=== PATIENT | male | born 1990 | race Caucasian/White ===

== ENCOUNTER 2020-12-27 14:25 | Emergency (ER) | payer MEDICAID ==
--- NOTE | 2020-12-27 14:53 | ERPHSYRPT ---
- History of Present Illness Historian: patient Patient Subjective Stated Complaint: Chest pain Triage Nursing Assessment: Patient ambulated back to ED and transferred self to bed. Patient A+O X3. Patient's skin pink, warm and dry. Patient complains of left sided chest/rib pain for one week. Patient states one week ago he was wrestling with someone when he started having pain. Patient complains of intermittent sharp pain 6/10 when moving. Physician History: 30 yo wm w L lateral chest pain x 1wk. Pt states injured wrestling while drinking. Pain worse w movement. He denies N/V/diaphoresis/dyspnea/fever/cough. Pt denies h/o HTN/DM/hyperlipidemia but does smoke 1-2 ppd and has a h/o meth use in the past. Pain is moderate and sharp. Timing/Duration: other (1wk) Activities at Onset: other (Possibly wrestling) Quality: sharpness Location: other (L lateral thorax) Severity of Pain-Max: moderate Severity of Pain-Current: moderate Modifying Factors: Improves With: movement Associated Symptoms: No nausea, No vomiting, No palpitations, No heartburn, No abdominal pain, No shortness of breath, No cough, No hurts to breathe, No diaphoresis, No chills, No fever, No fatigue, No weakness, No swelling/lump in chest, No syncope, No rash, No headache, No dizziness, No edema, No back pain Prior Chest Pain/Cardiac Workup: no prior chest pain Nitro Today/Relief: no nitro taken today Aspirin Treatment Today: no aspirin today Allergies/Adverse Reactions: No Known Drug Allergies Allergy (Unverified 12/27/20 14:30) Home Medications: No Reportable Medications [No Reported Medications] 12/27/20 [History] Hx Influenza Vaccination/Date Given: Yes Hx Pneumococcal Vaccination/Date Given: No Immunizations Up to Date: Yes Travel Risk - International Travel Have you traveled outside of the country in past 3 weeks: No - Coronavirus Screening Are you exhibiting any of the following symptoms?: No Close contact with a COVID-19 positive Pt in past 14-21 Days: No - Vaccine Status Have you recieved a Covid-19 vaccination: No - Review of Systems Constitutional: No Symptoms Eyes: No Symptoms Ears, Nose, & Throat: No Symptoms Respiratory: No Symptoms Cardiac: No Symptoms, Chest Pain Abdominal/Gastrointestinal: No Symptoms Genitourinary Symptoms: No Symptoms Musculoskeletal: No Symptoms Skin: No Symptoms Neurological: No Symptoms Psychological: No Symptoms Endocrine: No Symptoms Hematologic/Lymphatic: No Symptoms Immunological/Allergic: No Symptoms - Past Medical History Pertinent Past Medical History: No Neurological History: No Pertinent History ENT History: No Pertinent History Cardiac History: No Pertinent History Respiratory History: No Pertinent History Endocrine Medical History: No Pertinent History Musculoskeletal History: No Pertinent History GI Medical History: No Pertinent History History: No Pertinent History Psycho-Social History: No Pertinent History Male Reproductive Disorders: No Pertinent History - Past Surgical History Past Surgical History: No Neuro Surgical History: No Pertinent History Cardiac: No Pertinent History Respiratory: No Pertinent History Gastrointestinal: No Pertinent History Genitourinary: No Pertinent History Musculoskeletal: No Pertinent History Male Surgical History: No Pertinent History - Social History Smoking Status: Current every day smoker How long have you smoked: years Exposure to second hand smoke: Yes Drug Use: marijuana Patient Lives Alone: No Significant Family History: no pertinent family hx - Nursing Vital Signs Nursing Vital Signs: Initial Vital Signs Temperature 98.0 F 12/27/20 14:30 Pulse Rate 71 12/27/20 14:30 Respiratory Rate 18 12/27/20 14:30 Blood Pressure 136/83 12/27/20 14:30 O2 Sat by Pulse Oximetry 98 12/27/20 14:30 Pain Scale Pain Intensity 6 - Physical Exam General Appearance: no apparent distress Eye Exam: PERRL/EOMI, eyes nml inspection Ears, Nose, Throat Exam: normal ENT inspection, TMs normal, pharynx normal, moist mucous membranes Neck Exam: normal inspection, non-tender, supple, full range of motion, No meningismus, No mass, No Brudzinski, No Kernig's, No carotid bruit Respiratory Exam: normal breath sounds, chest tenderness (Mild L lateral), lungs clear, airway intact, No respiratory distress Cardiovascular Exam: regular rate/rhythm, normal heart sounds, normal peripheral pulses, No murmur Gastrointestinal/Abdomen Exam: soft, normal bowel sounds, No tenderness, No distention Back Exam: normal inspection, normal range of motion, No CVA tenderness Extremity Exam: normal inspection, normal range of motion Neurologic Exam: alert, oriented x 3, cooperative, apparel fashion designer II-XII nml as tested, normal mood/affect, sensation nml Skin Exam: normal color, warm, dry Lymphatic Exam: No adenopathy SpO2 Interpretation: normal SpO2: 98 O2 Delivery: Room Air - Course Nursing assessment & vital signs reviewed: Yes EKG Interpreted by Me: RATE (NSR/R81/RBBB/LVH/Normal Qt-QTc) - Radiology Exams Ribs X-ray Interpretation: Discussed w/ radiologist (L ribs neg per Rad) Ordered Tests: Active Orders 24 hr Category Date Time Status EKG-ER Only STAT Care 12/27/20 14:46 Completed RIBS UNILATERAL Stat Exams 12/27/20 15:02 Completed TROPONIN Q3H Lab 12/27/20 15:00 Completed TROPONIN Q3H Lab 12/27/20 18:00 Ordered TROPONIN Q3H Lab 12/27/20 21:00 Ordered Lab/Rad Data: Laboratory Results 12/27/20 Range/Units 15:00 Troponin I < 0.012 (0.000-0.034) ng/mL - Progress Progress Note: 12/27/20 15:43 Pt refuses pain meds Counseled pt/family regarding: lab results, diagnosis, need for follow-up, rad results - Departure Departure Disposition: Home Clinical Impression: Chest wall injury Condition: Stable Critical Care Time: No Referrals: DOCTOR,NO FAMILY [Primary Care Provider] - Instructions: Costochondritis (DC) Additional Instructions: Motrin/Tylenol for pain Follow up with your family MD Return to ER for increasing pain or shortness of breath
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
[2020-12-27 15:49] VITALS: BP 112/72; PULSE 48
[2020-12-27 16:35] VITALS: O2SAT 98
== END 2020-12-27 15:54 | disposition home or self-care (01) ==
LOC: ED 14:25
DX: S29.9XXA Unspecified injury of thorax, initial encounter (principal); R07.9 Chest pain, unspecified; X50.0XXA Overexertion from strenuous movement or load, initial encounter; X50.9XXA Other and unspecified overexertion or strenuous movements or postures, initial encounter; Y93.72 Activity, wrestling; Y92.89 Other specified places as the place of occurrence of the external cause
CPT/HCPCS: 36000; 36415; 71100; 84484; 93005; 99284

== ENCOUNTER 2021-03-15 12:12 | Emergency (ER) | payer SELFPAY ==
--- NOTE | 2021-03-15 12:40 | ERPHSYRPT ---
- History of Present Illness Time Seen by Provider: 03/15/21 12:29 Source: patient Exam Limitations: no limitations Patient Subjective Stated Complaint: PT states "I have had cough for the past 4 days. I am from [place] and I am not used to all this humidity.:" Triage Nursing Assessment: Pt presented alert and oriented X 3, skin pwd Pt ambulates with an upright steady gait, able to speak in clear full sentenecs pt in no apparent respiratory distress. Physician History: 30 years old presented in the ER with chief complaint of wet to dry cough some congestion for the last 4 days with progressive worsening. Denies any difficulty breathing. Subjective feeling of fever and chills. Timing/Duration: day(s) (4), intermittent, gradual onset, worse Cough Quality/Degree: moderate, dry cough, productive cough Possible Cause: illness exposure Modifying Factors: Worsens With: coughing Associated Symptoms: cough, nasal congestion, nasal drainage, sore throat, wheezing, No fever, No chills, No chest pain/soreness, No shortness of breath Allergies/Adverse Reactions: No Known Drug Allergies Allergy (Verified 03/15/21 12:25) Hx Tetanus, Diphtheria Vaccination/Date Given: Yes Hx Influenza Vaccination/Date Given: No Hx Pneumococcal Vaccination/Date Given: No Immunizations Up to Date: Yes Travel Risk - International Travel Have you traveled outside of the country in past 3 weeks: No - Coronavirus Screening Are you exhibiting any of the following symptoms?: No Close contact with a COVID-19 positive Pt in past 14-21 Days: No - Vaccine Status Have you recieved a Covid-19 vaccination: No - Review of Systems Constitutional: No Symptoms Eyes: No Symptoms Ears, Nose, & Throat: Nose Congestion, Nose Discharge, Sinus Drainage Respiratory: Cough, Wheezing Cardiac: No Symptoms Abdominal/Gastrointestinal: No Symptoms Genitourinary Symptoms: No Symptoms Musculoskeletal: No Symptoms Skin: No Symptoms Neurological: No Symptoms Psychological: No Symptoms Endocrine: No Symptoms - Past Medical History Pertinent Past Medical History: No Neurological History: No Pertinent History ENT History: No Pertinent History Cardiac History: No Pertinent History Respiratory History: No Pertinent History Endocrine Medical History: No Pertinent History Musculoskeletal History: No Pertinent History GI Medical History: No Pertinent History History: No Pertinent History Psycho-Social History: No Pertinent History Male Reproductive Disorders: No Pertinent History - Past Surgical History Past Surgical History: No Neuro Surgical History: No Pertinent History Cardiac: No Pertinent History Respiratory: No Pertinent History Gastrointestinal: No Pertinent History Genitourinary: No Pertinent History Musculoskeletal: No Pertinent History Male Surgical History: No Pertinent History - Social History Smoking Status: Current every day smoker How long have you smoked: years Exposure to second hand smoke: Yes Drug Use: methamphetamines Patient Lives Alone: Yes Significant Family History: no pertinent family hx - Nursing Vital Signs Nursing Vital Signs: Initial Vital Signs Temperature 98.1 F 03/15/21 12:20 Pulse Rate 62 03/15/21 12:20 Respiratory Rate 22 03/15/21 12:20 Blood Pressure 131/73 03/15/21 12:20 O2 Sat by Pulse Oximetry 100 03/15/21 12:20 Pain Scale Pain Intensity 0 - Physical Exam General Appearance: no apparent distress, alert Eye Exam: PERRL/EOMI, eyes nml inspection Ears, Nose, Throat Exam: TMs normal, pharyngeal erythema Neck Exam: normal inspection, supple, full range of motion Respiratory Exam: airway intact, wheezing, No respiratory distress, No accessory muscle use Cardiovascular Exam: regular rate/rhythm, normal heart sounds Back Exam: normal inspection, normal range of motion Extremity Exam: normal inspection, normal range of motion Neurologic Exam: alert, oriented x 3, cooperative Skin Exam: normal color SpO2 Interpretation: normal SpO2: 100 O2 Delivery: Room Air - Progress Progress: unchanged Air Movement: good Progress Note: 03/15/21 12:37 viral uri with cough Supportive care recommended. Outpatient follow-up. Blood Culture(s) Obtained: No Antibiotics given: No Counseled pt/family regarding: diagnosis, need for follow-up, smoking cessation - Departure Departure Disposition: Home Clinical Impression: Viral URI with cough Condition: Stable Critical Care Time: No Referrals: DOCTOR,NO FAMILY [Primary Care Provider] - MARTHA MUHAMMAD MD [ACTIVE STAFF] - Follow Up with PCP/3 days Instructions: Cough, Adult (DC) Additional Instructions: follow up with PCP for re evaluation in 2-3 days if has no improvement. return to ER for worsening cough or if develop shortness of breath/fever /chest pain etc Prescriptions: Fexofenadine/Pseudoephedrine [Aimee-D 12 Hour Tablet] 1 each PO BID #14 tablet Prednisone 20 mg [Deltasone 20 mg] 60 mg PO DAILY 5 Days #15 tablet Albuterol 8 gm Mdi Hfa [Ventolin Hfa MDI] 8 gm IH Q4H #1 gm
[2021-03-15 12:44] VITALS: BP 128/60; PULSE 60
[2021-03-15 21:48] VITALS: O2SAT 100
== END 2021-03-15 12:59 | disposition home or self-care (01) ==
LOC: ED 12:12
DX: J06.9 Acute upper respiratory infection, unspecified (principal); R05 Cough
CPT/HCPCS: 99283

== ENCOUNTER 2021-12-12 16:26 | Emergency (ER) | payer MEDICAID ==
[2021-12-12] MEDS ORDERED: CLEOCIN 150 MG CAPSULE PO ONE (16:53)
[2021-12-12] MEDS ORDERED: PERCOCET TABLET 5/325MG PO ONE (16:53)
[2021-12-12] MEDS ORDERED: PERCOCET TABLET 5/325MG ONE (17:03)
[2021-12-12] MEDS ORDERED: CLEOCIN 150 MG CAPSULE ONE (17:04)
--- NOTE | 2021-12-12 17:04 | ERPHSYRPT ---
- History of Present Illness Time Seen by Provider: 12/12/21 16:34 Source: patient Exam Limitations: no limitations Patient Subjective Stated Complaint: pt co swelling to right, states he did to yard work yesterday, doesn not feel like amything in eye Triage Nursing Assessment: pt alert, walked in, resp easy, face jack in place, has swelling around eye , co some blurred vison and tearing Physician History: 31-year-old male with history of psoriasis presented in the ER with chief complaint of right medial eyebrow area swelling and pain since yesterday. Patient report he always have a scab on a lesion in this area and day before yesterday it came off while taking a shower and noticed increased swelling and redness with moderate intensity sharp pain. No difficulty movements of eyeball. No swelling of the upper lid. No fever or chills reported. Timing/Duration: yesterday, gradual onset, worse Location: right eye Severity: moderate Apparent Injury: no Associated Symptoms: pain Allergies/Adverse Reactions: No Known Drug Allergies Allergy (Verified 12/12/21 16:35) Hx Tetanus, Diphtheria Vaccination/Date Given: No Hx Influenza Vaccination/Date Given: No Hx Pneumococcal Vaccination/Date Given: No Travel Risk - International Travel Have you traveled outside of the country in past 3 weeks: No - Coronavirus Screening Are you exhibiting any of the following symptoms?: No Close contact with a COVID-19 positive Pt in past 14-21 Days: No - Vaccine Status Have you recieved a Covid-19 vaccination: No - Review of Systems Constitutional: No Symptoms Eyes: Eye Pain, No Eye Redness Ears, Nose, & Throat: No Symptoms Respiratory: No Symptoms Cardiac: No Symptoms Skin: Skin Lesions Neurological: No Symptoms Endocrine: No Symptoms Hematologic/Lymphatic: No Symptoms - Past Medical History Pertinent Past Medical History: No Neurological History: No Pertinent History ENT History: No Pertinent History Cardiac History: No Pertinent History Respiratory History: No Pertinent History Endocrine Medical History: No Pertinent History Musculoskeletal History: No Pertinent History GI Medical History: No Pertinent History History: No Pertinent History Psycho-Social History: No Pertinent History Male Reproductive Disorders: No Pertinent History - Past Surgical History Past Surgical History: No Neuro Surgical History: No Pertinent History Cardiac: No Pertinent History Respiratory: No Pertinent History Gastrointestinal: No Pertinent History Genitourinary: No Pertinent History Musculoskeletal: No Pertinent History Male Surgical History: No Pertinent History - Social History Smoking Status: Current every day smoker How long have you smoked: years Exposure to second hand smoke: Yes Drug Use: marijuana, methamphetamines Patient Lives Alone: Yes Significant Family History: no pertinent family hx - Nursing Vital Signs Nursing Vital Signs: Initial Vital Signs Temperature 97 F 12/12/21 16:31 Pulse Rate 67 12/12/21 16:31 Respiratory Rate 18 12/12/21 16:31 Blood Pressure 112/66 12/12/21 16:31 O2 Sat by Pulse Oximetry 100 12/12/21 16:31 Pain Scale Pain Intensity 10 - Physical Exam General Appearance: no apparent distress Vision Acuity Degree Evaluation Phase: Uncorrected Vision Acuity Right Eye: 20/30 Vision Acuity Left Eye: 20/30 Eye Exam: right eye: other (0.5 x 0.5 cm area in the medial end of eyebrow with swelling redness, warm, tender to touch. Questionable fluctuation. No upper lip swelling. No lower lid swelling. No redness of eyeball. Intact range of motion.), bilateral eye: normal inspection, PERRL, EOMI Ears, Nose, Throat Exam: normal ENT inspection, pharynx normal, moist mucous membranes Neck Exam: normal inspection, non-tender, supple, full range of motion Respiratory Exam: normal breath sounds, lungs clear Cardiovascular Exam: regular rate/rhythm, normal heart sounds Neurologic: alert, oriented x 3, cooperative, talking books library clerk II-XII nml as tested, normal mood/affect Skin Exam: normal color SpO2 Interpretation: normal SpO2: 100 O2 Delivery: Room Air Ordered Tests: Medication Summary Discontinued Medications Generic Name Dose Route Start Last Admin Trade Name Mika PRN Reason Stop Dose Admin Clindamycin HCl 300 mg 12/12/21 16:53 12/12/21 17:06 Clindamycin Hcl 150 Mg Capsule PO 12/12/21 16:54 300 mg STAT ONE Administration Clindamycin HCl Confirm 12/12/21 17:04 Clindamycin Hcl 150 Mg Capsule Administered 12/12/21 17:05 Dose 300 mg .ROUTE .STK-MED ONE Oxycodone/Acetaminophen 1 tab 12/12/21 16:53 12/12/21 17:05 Oxycodone Hcl/Apap 5 Mg/325 Mg Tablet PO 12/12/21 16:54 Not Given STAT ONE Oxycodone/Acetaminophen Confirm 12/12/21 17:03 Oxycodone Hcl/Apap 5 Mg/325 Mg Tablet Administered 12/12/21 17:04 Dose 1 tab .ROUTE .STK-MED ONE - Progress Progress: unchanged Progress Note: 12/12/21 17:05 Is given Percocet for symptomatic relief which she refused. I have tried to do needle aspiration but negative for any pus. Started on antibiotics. We will treat him like periorbital cellulitis with clindamycin. Outpatient follow-up recommended. Up-to-date with tetanus. Counseled pt/family regarding: diagnosis, need for follow-up - Departure Departure Disposition: Home Clinical Impression: Periorbital cellulitis of right eye Condition: Stable Critical Care Time: No Referrals: DOCTOR,NO FAMILY [Primary Care Provider] - Follow up/PCP as directed ABRAHAN BAILEY DO [ACTIVE STAFF] - Follow up/PCP as directed (1-2 days for reevaluation) Instructions: Orbital Cellulitis (DC) Additional Instructions: Take Tylenol/ibuprofen as needed. Continue with your antibiotics. Follow-up with primary care for reevaluation. Turn to ER for any worsening of swel ling/pain, difficulty movements of eyeball, difficulty moving upper lid, fever chills, discharge etc.. Prescriptions: Ibuprofen 600 mg PO Q6HPRN PRN 10 Days #20 tablet PRN Reason: Pain clindamycin HCL [Clindamycin HCl] 300 mg PO QID 7 Days #28 cap
[2021-12-12 17:23] VITALS: BP 104/65; PULSE 74
[2021-12-12 22:19] VITALS: O2SAT 100
== END 2021-12-12 17:27 | disposition home or self-care (01) ==
LOC: ED 16:26
DX: L03.213 Periorbital cellulitis (principal); R51.9 Headache, unspecified; Z72.0 Tobacco use
CPT/HCPCS: 99283; A9270-GY

== ENCOUNTER 2022-06-23 15:54 | Emergency (ER) | payer MEDICAID, OTHER ==
[2022-06-23 16:22] VITALS: BP 123/79; PULSE 69; O2SAT 100
[2022-06-23] MEDS ORDERED: XYLOCAINE 1% HCL 20 ML MDV ONE (16:32)
[2022-06-23] MEDS ORDERED: BACIGUENT PACKET ONE (16:32)
--- NOTE | 2022-06-23 16:32 | ERPHSYRPT ---
- History of Present Illness Source: patient Exam Limitations: no limitations Patient Subjective Stated Complaint: C/O skin irritation and pain to right side of face for 3 days Triage Nursing Assessment: Patient ambulated back to ED without difficulties. No SOB. He is alert and oriented. Patient with a red, warm, swollen protrusion to right upper cheek area on face. The area has 3 small, pinpoint pustules noted within it. Swelling extends around the protrusion with swelling noted under right eye. Right eye swelling with some bruising/purple discoloration. Physician History: Large pustule R zygoma area x 4 days. pain is mild, and fever is denied. He denies trauma/DELACRUZ/N/V. He has a h/o similar pustule in the past. Timing/Duration: other (4 days) Quality: painful Severity: mild Location: face Possible Causes: no cause identified Associated Symptoms: denies symptoms Allergies/Adverse Reactions: No Known Drug Allergies Allergy (Verified 06/23/22 16:11) Hx Tetanus, Diphtheria Vaccination/Date Given: Yes Hx Influenza Vaccination/Date Given: No Hx Pneumococcal Vaccination/Date Given: No Immunizations Up to Date: Yes Travel Risk - International Travel Have you traveled outside of the country in past 3 weeks: No - Coronavirus Screening Close contact with a COVID-19 positive Pt in past 14-21 Days: No - Vaccine Status Have you recieved a Covid-19 vaccination: No - Review of Systems Constitutional: No Symptoms Eyes: No Symptoms Ears, Nose, & Throat: No Symptoms Respiratory: No Symptoms Cardiac: No Symptoms Abdominal/Gastrointestinal: No Symptoms Genitourinary Symptoms: No Symptoms Musculoskeletal: No Symptoms Neurological: No Symptoms Psychological: No Symptoms Endocrine: No Symptoms Hematologic/Lymphatic: No Symptoms Immunological/Allergic: No Symptoms - Past Medical History Pertinent Past Medical History: No Neurological History: No Pertinent History ENT History: No Pertinent History Cardiac History: No Pertinent History Respiratory History: No Pertinent History Endocrine Medical History: No Pertinent History Musculoskeletal History: No Pertinent History GI Medical History: No Pertinent History History: No Pertinent History Psycho-Social History: No Pertinent History Male Reproductive Disorders: No Pertinent History - Past Surgical History Past Surgical History: No Neuro Surgical History: No Pertinent History Cardiac: No Pertinent History Respiratory: No Pertinent History Gastrointestinal: No Pertinent History Genitourinary: No Pertinent History Musculoskeletal: No Pertinent History Male Surgical History: No Pertinent History - Social History Smoking Status: Current every day smoker How long have you smoked: years Exposure to second hand smoke: Yes Drug Use: marijuana, methamphetamines Patient Lives Alone: Yes Significant Family History: no pertinent family hx - Nursing Vital Signs Nursing Vital Signs: Initial Vital Signs Temperature 97.6 F 06/23/22 16:11 Pulse Rate 69 06/23/22 16:11 Respiratory Rate 18 06/23/22 16:11 Blood Pressure 123/79 06/23/22 16:11 O2 Sat by Pulse Oximetry 100 06/23/22 16:11 Pain Scale Pain Intensity 10 WNL - Physical Exam General Appearance: no apparent distress Eye Exam: PERRL/EOMI, eyes nml inspection Ears, Nose, Throat Exam: normal ENT inspection, TMs normal, pharynx normal, moist mucous membranes Neck Exam: normal inspection, non-tender, supple, full range of motion, No meningismus, No mass, No Brudzinski, No Kernig's, No carotid bruit Respiratory Exam: normal breath sounds, lungs clear, airway intact, No respiratory distress Cardiovascular Exam: regular rate/rhythm, normal heart sounds, normal peripheral pulses, capillary refill <2 sec, No murmur Back Exam: normal inspection, normal range of motion Extremity Exam: normal inspection, normal range of motion Neurologic Exam: alert, oriented x 3, cooperative, guest services assistant II-XII nml as tested, normal mood/affect, nml cerebellar function, nml station & gait, sensation nml Skin Exam: other (Large pustule R zygoma area) Lymphatic Exam: No adenopathy SpO2 Interpretation: normal SpO2: 100 O2 Delivery: Room Air Procedures - Incision and Drainage Time of Procedure: 16:28 Anesthesia: 1% Lidocaine cc's of anesthesia: 3 Blade Size: 11 I & D Procedure: betadine prep Results: moderate amount pus - Course Nursing assessment & vital signs reviewed: Yes Ordered Tests: Medication Summary Discontinued Medications Generic Name Dose Route Start Last Admin Trade Name Freq PRN Reason Stop Dose Admin Bacitracin Zinc 0.9 each 06/23/22 16:34 06/23/22 16:39 Bacitracin Packet 1 Each Pckt TP 06/23/22 16:35 0.9 each STAT ONE Administration Bacitracin Zinc Confirm 06/23/22 16:32 Bacitracin Packet 1 Each Pckt Administered 06/23/22 16:33 Dose 1 each .ROUTE .STK-MED ONE Lidocaine HCl Confirm 06/23/22 16:32 Lidocaine Hcl 1% 20 Ml Mdv 20 Ml Ml Administered 06/23/22 16:33 Dose 3 ml .ROUTE .STK-MED ONE - Progress Progress: improved Counseled pt/family regarding: diagnosis, need for follow-up - Departure Departure Disposition: Home Clinical Impression: Encounter for incision and drainage procedure Condition: Stable Critical Care Time: No Referrals: DOCTOR,NO FAMILY [Primary Care Provider] - Follow up/PCP as directed Instructions: Saturn[place] (MINNA) Additional Instructions: Warm compresses Start Doxycycline twice a day for 10 days Motrin/Tylenol for pain Follow up with your family MD Return to ER for worsening of condition Prescriptions: Doxycycline Monohydrate 100 mg PO BID #20 cap
[2022-06-23] MEDS ORDERED: BACIGUENT PACKET TP ONE (16:34)
== END 2022-06-23 16:48 | disposition home or self-care (01) ==
LOC: ED 15:54
DX: L08.9 Local infection of the skin and subcutaneous tissue, unspecified (principal); Z28.310 Unvaccinated for COVID-19; Z72.0 Tobacco use
CPT/HCPCS: 10060; 99281; A9270-GY